=== PATIENT | female | born 1985 | race Caucasian/White ===

== ENCOUNTER 2024-01-22 16:33 | Emergency (ER) | payer OTHER, SELFPAY ==
[2024-01-22 16:35] VITALS: BP 128/84; PULSE 89; TEMP 36.7; O2SAT 99
--- NOTE | 2024-01-22 16:40 | XR_ITS ---
The [address] [address] Patient Name: AMINA BA MRN: [id number] date: 1985 Sex: F Assigned Patient Location: ER Current Patient Location: ER Accession/Order Number: [id number] Exam Date: 01/22/2024 17:03 Report Date: 01/22/2024 17:26 At the request of: OSIEL CAMERON Procedure: XR knee LT 4V IMAGES REVIEWED: XR knee LT 4V COMPARISON: None available. CLINICAL INDICATION: left knee pain FINDINGS/IMPRESSION: 1. No evidence of acute osseous abnormality of the left knee. 2. No effusion. Electronically authenticated by: OLEGARIO ARIAS Date: 01/22/2024 17:26
--- NOTE | 2024-01-22 16:45 | PC.NURSE ---
slight left knee swelling, pt able to ambulate but with a limp, ice pack to site
--- NOTE | 2024-01-22 16:46 | ED.LOWEXI1 ---
HPI HPI - Extremity Injury (Lower) General Chief Complaint: Extremity Injury, Lower Stated Complaint: Lower INJURY Time Seen by Provider: 01/22/24 16:40 Source: patient Mode of arrival: walk-in History of Present Illness HPI Narrative: Patient is a 38-year-old female who presents to the emergency department for the evaluation of left knee pain. She states she twisted her left knee 2 days ago helping her mother, she states later that evening she twisted the knee again after a gave out. She had no fall or direct injury to the left knee. She complains of pain over the anterior/inferior patella. She is not concerned for . She is able to ambulate. No medications taken prior to arrival. Related Data Previous Rx's ?Medication ?Instructions ?Recorded ketorolac 10 mg tablet 10 mg PO TID PRN pain #10 tabs 01/22/24 prednisone 20 mg tablet See Rx Instructions .Route 01/22/24 .COMPLEX #12 tabs Allergies Allergy/AdvReac Type Severity Reaction Status Date / Time No Known Drug Allergies Allergy Verified 01/22/24 16:40 Opioid HPI Opioid Management Most Recent Pain and Opioid Data: Last JUL Pain Assessment 01/22/24 16:57 Review of Systems ROS Constitutional Denies: fever or chills Ears, nose, mouth, and throat Denies: throat pain or nasal congestion Respiratory Denies: shortness of breath Gastrointestinal Denies: nausea or vomiting Musculoskeletal Reports: extremity pain, joint pain and limited range of motion; Denies: back pain or neck pain Hematologic/Lymphatic Denies: easy bruising or easy bleeding Exam Narrative Exam Narrative: Gen.: Awake, alert, in no distress Head: Normocephalic, atraumatic ENT: Moist mucous membranes Respiratory: No respiratory distress Extremities: Moves extremities equally, no appreciable joint effusion. Patella is stable. No laxity of the patella with mild tenderness over the patellar tendon of the left knee. No obvious deformity or bruising. Psych: Normal mood and affect Neuro: No focal neuro deficit Skin: Warm, dry, intact Constitutional Vital Signs, click to edit/add: Last Vital Signs Temp 98.0 F 01/22/24 16:35 Pulse 89 01/22/24 16:35 Resp 20 01/22/24 16:35 BP 128/84 01/22/24 16:35 Pulse Ox 99 01/22/24 16:35 O2 Del Method Room Air 01/22/24 16:35 Course Vital Signs Vital signs: Vital Signs Temperature 98.0 F 01/22/24 16:35 Pulse Rate 89 01/22/24 16:35 Respiratory Rate 20 01/22/24 16:35 Blood Pressure 128/84 01/22/24 16:35 Pulse Oximetry 99 01/22/24 16:35 Oxygen Delivery Method Room Air 01/22/24 16:35 Temperature 98.0 F 01/22/24 16:35 Pulse Rate 89 01/22/24 16:35 Respiratory Rate 20 01/22/24 16:35 Blood Pressure 128/84 01/22/24 16:35 Pulse Oximetry 99 01/22/24 16:35 Oxygen Delivery Method Room Air 01/22/24 16:35 MDM - Extremity Injury (Lower) MDM Narrative Medical decision making narrative: Patient medicated for pain in the ER, x-rays show no evidence of acute abnormality. History and physical are consistent with left knee sprain and the patient was placed in Ortega wrap and knee immobilizer. She remains neurovascularly intact pre and post hardware application. Rest, ice, elevate. She was given an appointment time for Dr. Lynn for orthopedics next week on Tuesday. Return to the emergency department if symptoms change or worsen. NSAIDs and steroids given for home. SUPERVISED APC VISIT, PHYSICIAN ATTESTATION: Based on the medical record the care appears appropriate. ? Medical Records Attestation: I reviewed the patient's medical records. Imaging Data XR knee: Attestation: I have reviewed the pertinent imaging results. Discharge Plan Discharge Chief Complaint: Extremity Injury, Lower Clinical Impression: Left knee sprain Patient Disposition: Home, Self-Care Time of Disposition Decision: 17:30 Condition: Good Prescriptions / Home Meds: New prednisone 20 mg tablet See Rx Instructions .ROUTE .COMPLEX Qty: 12 0RF Rx Instructions: 3 tabs daily for 2 days, then 2 tabs daily for 2 days, then 1 tab daily for 2 days ketorolac 10 mg tablet 10 mg PO TID PRN (Reason: pain) Qty: 10 0RF Print Language: Malawian Instructions: Knee Sprain (ED) Additional Instructions: Dr. Lynn's office will see you on Tuesday01/30/24 at 11 am, please call the office to cancel or reschedule if needed Referrals: Edwin Schultz MD [Primary Care Provider] - 1 week Rogers Lynn MD [Physician] - 01/30/24 11:00 am
[2024-01-22] MEDS: KETOROLAC TROMETHAMINE 10 MG TABLET PO (16:57)
[2024-01-22] MEDS: HYDROCODONE/ACET 5-325 MG TABLET 1 TAB PO (16:57)
== END 2024-01-22 17:49 | disposition home or self-care (01) ==
PROVIDERS: Emergency Provider Emergency Medicine Emergency Medical Services; PCP Family Medicine
DX: S83.92XA Sprain of unspecified site of left knee, initial encounter (principal); X50.1XXA Overexertion from prolonged static or awkward postures, initial encounter
CPT/HCPCS: 73564; 99284

== ENCOUNTER 2024-02-08 07:34 | Outpatient (OUT) | payer OTHER, SELFPAY ==
--- NOTE | 2024-02-08 07:37 | MR_ITS ---
The [address] [address] Patient Name: AMINA BA MRN: [facility]:[id number] date: 1985 Sex: F Assigned Patient Location: MRI Current Patient Location: MRI Accession/Order Number: [id number] Exam Date: 02/08/2024 07:50 Report Date: 02/08/2024 15:05 At the request of: AUTUMN BECKWITH Procedure: MR knee LT wo con EXAM: MR knee LT wo con HISTORY: Internal Derangement Of Knee COMPARISON: None. TECHNIQUE: MRI images obtained with multiple sequences. MRI of the left knee without contrast. Sequences obtained by standard department protocol. FINDINGS: Anterior cruciate and posterior cruciate ligaments are intact. Medial collateral ligament and lateral supporting structures are intact. Medial meniscus is intact. Medial compartment articular cartilage is preserved. Lateral meniscus is intact. Lateral compartment articular cartilage is preserved. Subchondral nondisplaced fracture of the lateral tibial plateau with adjacent reactive bone marrow edema (sagittal T2, coronal PD fat-sat). Near full-thickness chondral fissure at the medial patellar facet. Trochlear articular cartilage is preserved. Small quantity of knee joint fluid. Extensor mechanism is intact. Miniscule popliteal cyst. MR/MR knee LT wo con IMPRESSION: 1. Subchondral nondisplaced fracture of the lateral tibial plateau with adjacent reactive bone marrow edema (sagittal T2, coronal PD fat-sat). 2. Anterior cruciate and posterior cruciate ligaments are intact. 3. Medial and lateral menisci are intact. 4. Other findings as described. Electronically authenticated by: DERECK NICHOLSON Date: 02/08/2024 15:05
== END 2024-02-08 07:35 | disposition home or self-care (01) ==
LOC: MRI 07:34
PROVIDERS: PCP Family Medicine; Visit Provider Family Medicine
DX: M23.92 Unspecified internal derangement of left knee (principal); S82.142A Displaced bicondylar fracture of left tibia, initial encounter for closed fracture
CPT/HCPCS: 73721

== ENCOUNTER 2024-09-30 15:31 | Emergency (ER) | payer OTHER, SELFPAY ==
--- OUTSIDE RECORDS SUMMARY | 2024-03-19 04:30 | XMS_ITS ---
Author Organization [facility] Address [address] [place] [address] Care Team Providers Care Schedule Checker Name Role Phone Edwin Schultz Primary Care Provider [facility] [phone] Results Component Value Reference Range Notes SCC- KNEE 2 VIEW LEFT - 7356 0 Reviewed date:05/15/2024 10:35:52 AM Interpretation: Performing Lab: Notes/Report: REASON FOR VISIT left knee lateral tibia plateau fracture Encounters Encounter Location Date Provider Diagnosis [facility] [address] [place] [address] 03/19/2024 Rogers Lynn Closed fracture of lateral portion of left tibial plateau with routine healing, subsequent encounter S82.122D Assessments Encounter Date Diagnosis (ICD Code) Assessment Notes Treatment Notes Treatment Clinical Notes Section Notes 03/19/2024 Closed fracture of lateral portion of left tibial plateau with routine healing, subsequent encounter (ICD-10 - S82.122D) Plan Of Treatment No Information Progress Notes * AMINA BA LDOB:[birth year] (39 yo F)Acc No.[id number]:03/19/2024 Patient: AMINA NGUYEN Kirt Provider: Molly Lynn MD :1985 A ge:38 Y S ex:Female Date:03/19/2024 Address:[address] [facility] Pcp:Edwin Schultz Subjective: * Chief Complaints: * 1 . Left knee lateral tibia plateau fracture. * Medical History: Objective: * Vitals: Assessment: * Assessment: 1. C losed fracture of lateral portion of left tibial plateau with routine healing, subsequent encounter - S82.122D Plan: * Treatment: Forms: * Images: * Electronic signature of Edison Lynn MD on 09/30/2024 at 03:39 PM EDT Sign off status: Pending * Provider: Molly Lynn MD Date: 1 05/19/2023 Generated for Jairo corona/[place]/Simranitting on: 0 09/30/2024 03:39 PM EDT
--- OUTSIDE RECORDS SUMMARY | 2024-08-03 11:30 | XMS_ITS ---
Author Organization The [facility] [place] Address [address] [place] [address] Care Team Providers Care Channel Business Manager Name Role Phone Anthony Schultz Primary Care Provider Allergies No Known Allergies Results Component Value Reference Range Notes UA (Urinalysis, Dipstix only - w/o micro) (Not yet reviewed by provider) Interpretation: Performing Lab: Notes/Report: GLUCOSE - 0 - 133 MG/DL ALBUMIN - NEG - NEG MG/DL BILIRUBIN - NEG - NEG MG/DL SPECIFIC GRAVITY 5 1.001 - 1.035 KETONES - NEG - NEG MG/DL BLOOD, UR + PH, UR 5 5 - 9 UROBILNOGEN - 0.2 - 1 MG/DL NITRITE + NEG - NEG ESTERASE (ASHLEY) + NEG - NEG MG/DL REASON FOR VISIT 2 month adipex follow up, patient also feels she might have a uti, symptoms are burning and frequency Medications Medication SIG (Take, Route, Fr equency, Duration) Notes Start Date End Date Status Pyridium 200 MG 1 tablet after meals Orally Three times a day for 2 days 08/03/2024 Act luis e Adipex-P 37.5 MG 1 tablet before leonardo kfast Orally Once a day for 30 days 08/03/2024 Active Cefdinir 300 MG 2 capsule Orally onc e a day for 10 days 08/03/2024 Active valACYclovir HCl 500 MG 1 tablet Orally tid for 10 days 07/06/2024 Active Zovirax 5 % 1 application Medical Education Manager ally Five times a day for 4 days 07/06/2024 Acti ve Social History Tobacco Use: Social History Observation Description Date Details (start date - stop date) Former Smoker NA - NA Tobacco Control (Standard) Question Answer Notes Tobacco use: Former smoker AUDIT-C (Standard) Question Answer Notes Did you have a drink contain ing alcohol in the past year? Yes How often did you have six o r more drinks on one occasion in the past year? Never (0 point) How many drinks did you have on a typical day when you were drinking in the past year? 1 or 2 drinks (0 point) How often did you have a dri nk containing alcohol in the past year? Monthly or less (1 point) Points 1 Interpretation Negative Vital Signs Blood pressure systolic 112 mm Hg 08/04/19 25 Blood pressure diastolic 70 mm Hg 025 Height 64 in 08/03/2024 Weight 184 lbs 08/03/2024 BMI 31.58 kg/m2 08/03/2024 Encounters Encounter Location Date Provider Diagnosis [facility] [address] [place] [address] 08/03/2024 Anthony Schultz UTI (urinary tract infection) N39.0 Assessments Encounter Date Diagnosis (ICD Code) Assessment Notes Treatment Notes Treatment Clinical Notes Section Notes 08/03/2024 UTI (urinary tract infection) (ICD-10 - N39.0) Plan Of Treatment Medication Medication Name Sig Start Date Stop Date Notes Pyridium 200 MG 1 tablet after meals Orally Three times a day for 2 days 08/03/2024 Adipex-P 37.5 MG 1 tablet before leonardo kfast Orally Once a day for 30 days 08/03/2024 Cefdinir 300 MG 2 capsule Orally once a day for 10 days Pending Test Test Name Order Date UA (Urinalysis, Dipstix only - w/o micro ) 08/03/2024 Progress Notes * BAArianna LDOB:[birth year] (39 yo F)Acc No.[id number]:08/03/2024 Progress Note Patient: Arianna NGUYEN Provider: Radha Schultz (TTC)MD :1985 A ge:39 Y S ex:Female Date:08/03/2024 Address:[address] [place], [place] [id number] Check In:03:27 PM ESTCheck O ut:03:50 PM EST Subjective: * Chief Complaints: * 2 month adipex follow upPatient also feels she might have a uti, symptoms are burning and frequency * ROS: E ENT: hearing changes d enies. v isual changes d enies.?non-healing mouth sores d enies. s wollen glands or neck lumps d enies. h oarseness d enies. s ore throat d enies. d ifficulty swallowing d enies. n ose bleeds d enies. n anh congestion d enies. e ar ache d enies. e ar discharge?denies. r inging in ears d enies. l ight sensitivity d enies. e ye pain d enies. b lurring d enies. e ye irritation d enies. d ouble vision d enies.?vision loss d enies. G eneral/Constitutional: Sweats: D enies. F atigue d enies. S leep problems d enies. A norexia d enies. M alaise d enies. W eight loss d enies.?Fatigue or Weakness d enies. F ever or Chills d enies. C ardiovascular: Shortness of Breath w/lying flat d enies. L ightheadedness/dizziness d enies. C hest tightness/ heavy pressure d enies. S welling of legs, ankles, or feet d enies. W aking up with shortness of breath d enies. C hest pain denies. P alpitations d enies. W eight gain d enies. R espiratory: Chronic or frequent cough d enies. C oughing up blood?denies. D ifficulty breathing d enies. P roductive cough d enies. S noring?denies. S hortness of breath that awakens from sleep (PND) d enies. C hest pain d enies. S putum production d enies. W heezing d enies. M usculoskeletal: Joint pain d enies. J oint Fluid d enies. B ack pain d enies. K nee pain d enies. N malachi pain d enies. J oint Stiffness d enies. M uscle cramps d enies. W eakness of muscles d enies. A rthritis d enies. M uscle aches d enies. P ain in shoulder(s) d enies. S wollen joints d enies. * Active Problem List M23.90 Internal derangement of knee Modified On:01/24/2024W/U Status:confirmed B00.1 Cold sore Modified On:07/06/2024W/U Status:confirmed * Medical History: * Surgical History: N o Surgical History documented. * Hospitalization/Major Diagno stic Procedure: N o Hospitalization History. * Family History: F ather: alive, diagnosed with Unspecified heart disease. M other: alive, diagnosed with Unspecified essential hypertension. B rother(s): alive. S ister(s): alive. S on(s): alive. D aughter(s): alive. 1 brother(s) , 2 sister(s) - healthy. 2 son(s) , 1 daughter(s) - healthy. . * Social History: T obacco Use: T obacco Control (Standard) T obacco use: F ormer smoker D rug/Alcohol: A MOSHE-C (Standard) D id you have a drink containing alcohol in the past year? Y es H ow often did you have six or more drinks on one occasion in the past year? N ever (0 point) H ow many drinks did you have on a typical day when you were drinking in the past year? 1 or 2 drinks (0 point) H ow often did you have a drink containing alcohol in the past year? M onthly or less (1 point) P oints 1 I nterpretation N egative * Medications: T akingAdipex-P(Phentermine HCl) 37.5 MG Tablet 1 tablet before breakfast Orally Once a day valACYclovir HCl 500 MG Tablet 1 tablet Orally tid Zovirax(Acyclovir) 5 % Cream 1 application Externally Five times a day Medication List reviewed and reconciled with the patientTaking Adipex-P(Phentermine HCl) 37.5 MG Tablet 1 tablet before breakfast Orally Once a day Taking valACYclovir HCl 500 MG Tablet 1 tablet Orally tid Taking Zovirax(Acyclovir) 5 % Cream 1 application Externally Five times a day Medication List reviewed and reconciled with the patient * Allergies: N .K.D.A.no[Allergies Verified] Objective: * Vitals: W t:184lbs, Ht: 64 in, BP:112/70mm Hg, BMI:31.58Index, Ht-cm: 162.56 cm, Wt-k.46 kg. * Examination: P hysical Exam: GENERAL: w ell developed, well nourished, in no acute distress. HEAD: n ormocephalic/atraumatic. EYES: p upils equal, round and reactive to light, conjunctivae and sclerae normal. EARS: n o deformity or lesion of external ear, canals and TM appear normal bilaterally, TM's intact, not inflamed with normal light reflex, hearing grossly normal to conversational speech. NOSE: n o deformity, discharge, inflammation, or lesions.? MOUTH: m ucous membranes moist, normal oropharynx and posterior pharynx without lesions or exudates, tongue normal, dentition normal. NECK: n malachi supple, no masses or palpable cervical nodes, trachea midline, thyroid without nodules, masses, tenderness, or enlargement. CHEST: n o chest wall deformity, no chest wall tenderness.? LUNGS: n ormal respiratory effort and clear to auscultation, no wheezes, rales, or rhonchi, good air exchange. CARDIO: r egular rate and rhythm, normal S1 and S2, nor murmur, rub, or gallop. PULSES: n ormal capillary refill. ABDOMEN: s oft, non-distended, non-tender, no masses. MUSCULOSKELETAL: n o deformity or scoliosis noted, normal range of motion, joints normal, no erythema, edema, effusion, or ecchymosis. EXTREMITY: n o clubbing, cyanosis, edema, or deformity with normal ROM in both upper and lower bilateral extremities. NEUROLOGIC: g rossly normal. SKIN: n o rashes, ulcerations, or suspicious lesions. LYMPH NODES: n o cervical adenopathy, nodes normal. MENTAL STATUS: a lert and oriented x3, normal mood and affect. Assessment: * Assessment: 1. U TI (urinary tract infection) - N39.0 (Primary) Plan: * Treatment: * Labs: * L ab: UA (Urinalysis, Dipstix only - w/o micro) (Collection Date & Time - 08/03/2024) Value Reference Range G LUCOSE - 0 - 133 MG/DL * A LBUMIN - NEG - NEG MG/DL * B ILIRUBIN - NEG - NEG MG/DL * S PECIFIC GRAVITY 5 1.001 - 1.035 * K ETONES - NEG - NEG MG/DL * B LOOD, UR + * P H, UR 5 5 - 9 * U ROBILNOGEN - 0.2 - 1 MG/DL * N ITRITE + NEG - NEG * E STERASE (ASHLEY) + NEG - NEG MG/DL * Procedure Codes: 8 1002 URINALYSIS WO MICRO * * Sign off status: Completed Visit Status: C HK (Check Out) true * Provider: Radha Schultz ([facility])MD Date: 0 08/03/2024 Generated for Printi ng/Faxing/eTransmitting on: 0 09/30/2024 03:39 PM EDT History and Physical Notes * Examination Category Sub-Category Detail Notes Category Not es Physical Exam GENERAL: well developed, well nourished, in no acute distress HEAD: normocephalic/atraum atic EYES: pupils equal, round and reactive to light, conjunctivae and sclerae normal EARS: no deformity or lesi on of external ear, canals and TM appear normal bilaterally, TM's intact, not inflamed with normal light reflex, hearing grossly normal to conversational speech NOSE: no deformity, discha rge, inflammation, or lesions MOUTH: mucous membranes leonel st, normal oropharynx and posterior pharynx without lesions or exudates, tongue normal, dentition normal NECK: neck supple, no mass es or palpable cervical nodes, trachea midline, thyroid without nodules, masses, tenderness, or enlargement CHEST: no chest wall deform ity, no chest wall tenderness LUNGS: normal respiratory e ffort and clear to auscultation, no wheezes, rales, or rhonchi, good air exchange CARDIO: regular rate and rhy thm, normal S1 and S2, nor murmur, rub, or gallop PULSES: normal capillary ref ill ABDOMEN: soft, non-distended, non-tender, no masses RECTAL: MUSCULOSKELETAL: no deformity or scol iosis noted, normal range of motion, joints normal, no erythema, edema, effusion, or ecchymosis EXTREMITY: no clubbing, cyanosi s, edema, or deformity with normal ROM in both upper and lower bilateral extremities NEUROLOGIC: grossly normal SKIN: no rashes, ulceratio ns, or suspicious lesions LYMPH NODES: no cervical adenopat hy, nodes normal MENTAL STATUS: alert and oriented x 3, normal mood and affect
--- OUTSIDE RECORDS SUMMARY | 2024-08-31 11:15 | XMS_ITS ---
Author Organization The [facility] [place] Address [address] [place] [address] Care Team Providers Care Handle Lathe Operator Name Role Phone Anthony Schultz Primary Care Provider [phone] REASON FOR VISIT diet Encounters Encounter Location Date Provider Diagnosis [facility] [address] [place] [address] 08/31/2024 Anthony Schultz Plan Of Treatment No Information Progress Notes * Arianna BA LDOB:[birth year] (39 yo F)Acc No.[id number]:08/31/2024 UNLOCKED PROGRESS NOTE Progress Note Patient: Arianna NGUYEN Provider: Radha Schultz MD (TTC) :1985 A ge:39 Y S ex:Female Date:08/31/2024 Address:[address] [facility] Subjective: * Chief Complaints: * 1 . Diet. * Medical History: Objective: * Vitals: Assessment: Plan: * Treatment: * * Electronic signature of Anthony Schultz MD, [id number] on 09/30/2024 at 03:38 PM EDT Sign off status: Pending Visit Status: C ANC (Cancelled) * Provider: Radha Schultz MD (TTC) Date: 0 08/31/2024 Generated for Printi ng/Fakristyg/eTransmitting on: 0 09/30/2024 03:38 PM EDT
--- OUTSIDE RECORDS SUMMARY | 2024-09-07 11:30 | XMS_ITS ---
Author Organization [facility] in [place] Address [address] [place] [address] Care Team Providers Care Ctrs Name Role Phone Anthony Schultz Primary Care Provider [phone] Allergies No Known Allergies REASON FOR VISIT diet Medications Medication SIG (Take, Route, Fr equency, Duration) Notes Start Date End Date Status Zovirax 5 % 1 application Staffing Associate ally Five times a day for 4 days 07/06/2024 Active Adipex-P 37.5 MG 1 tablet before leonardo kfast Orally Once a day for 30 days 09/07/2024 Active Social History Tobacco Use: Social History Observation Description Date Details (start date - stop date) Former Smoker NA - NA Tobacco Control (Standard) Question Answer Notes Tobacco use: Former smoker Vital Signs Blood pressure systolic 126 mm Hg 09/08/19 25 Blood pressure diastolic 82 mm Hg 025 Height 64 in 09/07/2024 Weight 174.0 lbs 09/07/2024 BMI 29.86 kg/m2 09/07/2024 Encounters Encounter Location Date Provider Diagnosis [facility] [address] [place] [address] 09/07/2024 Anthony Schultz Internal derangement of knee M23.90 Assessments Encounter Date Diagnosis (ICD Code) Assessment Notes Treatment Notes Treatment Clinical Notes Section Notes 09/07/2024 Internal derangement of knee (ICD-10 - M23.90) Plan Of Treatment Medication Medication Name Sig Start Date Stop Date Notes Pyridium 200 MG 1 tablet after meals Orally Three times a day 08/03/2024 Adipex-P 37.5 MG 1 tablet before leonardo kfast Orally Once a day for 30 days 09/07/2024 Progress Notes * Arianna BA LDOB:[birth year] (39 yo F)Acc No.[id number]:09/07/2024 Progress Note Patient: Arianna NGUYEN Provider: Radha Schultz ([facility])MD :1985 A ge:39 Y S ex:Female Date:09/07/2024 Address:[address] [place] [address], [id number] Check In:03:27 PM ESTCheck O ut:03:47 PM EST Subjective: * Chief Complaints: * D iet * ROS: E ENT: hearing changes d [...] Status:confirmed * Medical History: * Surgical History: D enies Past Surgical History * Hospitalization/Major Diagno stic Procedure: D enies Past Hospitalization * Family History: F ather: alive, diagnosed with Unspecified heart disease. M other: alive, diagnosed with Unspecified essential hypertension. B rother(s): alive. S ister(s): alive. S on(s): alive. D dechter(s): alive. 1 brother(s) , 2 sister(s) - healthy. 2 son(s) , 1 daughter(s) - healthy. . * Social History: T obacco Use: T obacco Control (Standard) T obacco use: F ormer smoker * Medications: T akingAdipex-P(Phentermine HCl) 37.5 MG Tablet 1 tablet before breakfast Orally Once a day Pyridium(Phenazopyridine HCl) 200 MG Tablet 1 tablet after meals Orally Three times a day Zovirax(Acyclovir) 5 % Cream 1 application Externally Five times a day Taking Adipex-P(Phentermine HCl) 37.5 MG Tablet 1 tablet before breakfast Orally Once a day Taking Pyridium(Phenazopyridine HCl) 200 MG Tablet 1 tablet after meals Orally Three times a day Taking Zovirax(Acyclovir) 5 % Cream 1 application Externally Five times a day DiscontinuedCefdinir 300 MG Capsule 2 capsule Orally once a day valACYclovir HCl 500 MG Tablet 1 tablet Orally tid Medication List reviewed and reconciled with the patientDiscontinued Cefdinir 300 MG Capsule 2 capsule Orally once a day Discontinued valACYclovir HCl 500 MG Tablet 1 tablet Orally tid Medication List reviewed and reconciled with the patient * Allergies: N .K.D.A.no[Allergies Verified] Objective: * Vitals: W t:174.0lbs, Ht: 64 in, BP:126/82mm Hg, BMI:29.86Index, Ht-cm: 162.56 cm, Wt-k.93 kg. * Examination: P hysical Exam: GENERAL: [...] mood and affect. Assessment: * Assessment: 1. I nternal derangement of knee - M23.90 (Primary) Plan: * Treatment: * Procedure Codes: * Preventive Medicine: Screenings/Counseling: B [facility] [employer] Above Normal BMI Follow-up D ietary management education, guidance, and counseling * * Sign off status: Completed Visit Status: C HK (Check Out) true * Provider: Radha Schultz ([facility])MD Date: 09/07/2024 Generated for Printi ng/Faxing/eTransmitting on: 09/30/2024 03:38 PM EDT History and Physical Notes * [...]
[2024-09-30 15:39] VITALS: BP 137/90; PULSE 81; TEMP 36.8; O2SAT 99; BMI 28.3
--- OUTSIDE RECORDS SUMMARY | 2024-09-30 15:39 | XMS_ITS | Patient Health Record ---
Author Organization [facility] Address [address] [place] [address] Care Team Providers Care Chargemaster Analyst Name Role Phone Edwin Schultz Primary Care Provider Eskari weems Rogers Lynn Unavailable [phone] Allergies No Known Allergies Results Component Value Reference Range Notes MRI : Knee W/O Contrast Left - [id number] Reviewed date:03/01/2024 09:14:11 AM Interpretation: Performing Lab: Notes/Report: Reason For Referral Reason N/S........NEED DICT .....PLEASE OBTAIN AUTHORIZATION FOR MRI LEFT KNEE Diagnosis 1 Acute pain of left k nee (M25.562) Referral Organization [facility] Referring Provider First Name Rogers Referring Provider Last Name Leah Referring Provider Speciality Orthopedic Surgery [facility] Organization [facility] Referred Address [place], [place], Procedure 1 MRI Joint Lower Ext w/o Dye ([id number]) General Notes Annie Landon 024 12:15:28 PM >NO DICTATIONSavage Kimberly 01/30/2024 01:39:21 PM >Patient called because she remembered that her PCP has also ordered an MRI of her left knee. She is going to see if the authorization process has started. If it has not, she will cancel with him and will proceed with ours. If it has, she will get the MRI and then schedule a follow up with [facility].Savage Kimberly 02/02/2024 09:32:41 AM > Spoke with patient. She is still trying to figure out if her PCP has started the process., Elvia Wan 02/02/2024 02:51:18 PM >Patient left a voicemail that her MRI has been scheduled through her PCP Referral Priority Urgent Social History Tobacco Use: Social History Observation Description Date Details (start date - stop date) Never Smoker NA - NA AUDIT-C (Standard) Question Answer Notes Did you [...] less (1 point) Points 1 Interpretation Negative Tobacco Control (Standard) Question Answer Notes Tobacco use: Nonsmoker Problems Problem Type SNOMED Code ICD Code Onset Dates Problem Status W/U Status Risk Notes Problem [id number] Closed fracture of lateral portion of left tibial plateau with routine healing, subsequent encounter (S82.122D) Active confirmed Vital Signs Height 5'4 in 02/20/2024 Weight 170 lbs 02/20/2024 BMI 29.18 02/20/2024 Encounters Encounter Location Date Provider Diagnosis [facility] [address] [place] [phone] 01/30/2024 Rogers Lynn Acute pain of left knee M25.562 [facility] [address] [place] [phone] 02/20/2024 Rogers Lynn Closed fracture of lateral portion of left tibial plateau with routine healing, subsequent encounter S82.122D Assessments Encounter Date Diagnosis (ICD Code) Assessment Notes Treatment Notes Treatment Clinical Notes Section Notes 01/30/2024 Acute pain of left knee (ICD-10 - M25.562) 02/20/2024 Closed fracture of lateral portion of left tibial plateau with routine healing, subsequent encounter (ICD-10 - S82.122D) 01/30/2024 Other Patient's left knee injury is concerning for meniscal tear versus an occult fracture. I recommended continue with crutches. I recommended an MRI scan. She will follow-up once the study is complete. Import medication 02/20/2024 Other For her lateral tibial plateau fracture I recommended she get back on the crutches for nonweightbearing and minimize activity. Work for her is at a factory to involve standing all day. I discussed she would likely be out for 2 more months. She will follow-up in 1 month to repeat x-rays and reassess her progress. Import medication Plan Of Treatment No Information Insurance Providers Payer Name Payer Address Payer Phone Subscriber Number Group Number Insured Name Patient Relationship to Insured Coverage Start Date Coverage End Date [facility] [address] [place] [phone] [id number] AMINA BA Self - patient is the insured
[2024-09-30] MEDS: FLUORESCEIN SODIUM 1 MG STRIP OP (15:54)
[2024-09-30] MEDS: TETRACAINE HCL 0.5% OP SOL 80 DROP/4 ML BOTTLE OP (15:55)
--- NOTE | 2024-09-30 16:00 | ED.EYEPROB1 ---
HPI - Eye Problem General Chief complaint: Eye Problems Stated complaint: EYE ISSUE Time Seen by Provider: 09/30/24 15:48 Source: patient Mode of arrival: walk-in History of Present Illness HPI Narrative: 39 year old female presents to the ED for left eye irritation, crusting, drainage. Reports mild itching. Onset was a few days ago. 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 The sensation has improved. Denies fever, vision changes. Related Data Previous Rx's ?Medication ?Instructions ?Recorded ofloxacin 0.3 % eye drops (Ocuflox) 2 drp ophthalmic (eye) Q6H 7 days 09/30/24 #5 mL Allergies Allergy/AdvReac Type Severity Reaction Status Date / Time No Known Drug Allergies Allergy Verified 01/22/24 16:40 Review of Systems ROS Constitutional Denies: fever or chills Eyes Reports: eye discomfort and eye discharge; Denies: change in vision, blurry vision, blind spots, light sensitivity or floaters Cardiovascular Denies: chest pain Respiratory Denies: shortness of breath Neurological Denies: headache PFSH PFSH Social History Little interest or pleasure in doing things: not at all Feeling down, depressed, or hopeless: not at all Exam Constitutional Vital Signs, click to edit/add: Last Vital Signs Temp 98.2 F 09/30/24 15:39 Pulse 81 09/30/24 15:39 Resp 18 09/30/24 15:39 BP 137/90 09/30/24 15:39 Pulse Ox 99 09/30/24 15:39 O2 Del Method Room Air 09/30/24 15:39 Common normals: no apparent distress and oriented x3 General appearance: cooperative Eye Common normals: PERRL, EOMs intact bilaterally and no scleral icterus Eyelid: eyelids normal Conjunctiva: conjunctiva abnormal left conjunctival injection and discharge; without subconjunctival hemmorhages Other: Left eye was anesthetized with tetracaine, stained with a fluorescein strip, and examined with the wood's lamp. No corneal abrasion was noted. No FB noted. Neck & C-Spine Common normals: supple Respiratory Common normals: normal respiratory effort Effort & inspection: able to speak in complete sentences and symmetric chest movement Cardio Common normals: regular rate Neuro Common normals: oriented x3 and moves all extremities Sensorium/orientation: awake and alert Speech: speech normal Course Vital Signs Vital signs: Vital Signs Temperature 98.2 F 09/30/24 15:39 Pulse Rate 81 09/30/24 15:39 Respiratory Rate 18 09/30/24 15:39 Blood Pressure 137/90 09/30/24 15:39 Pulse Oximetry 99 09/30/24 15:39 Oxygen Delivery Method Room Air 09/30/24 15:39 Temperature 98.2 F 09/30/24 15:39 Pulse Rate 81 09/30/24 15:39 Respiratory Rate 18 09/30/24 15:39 Blood Pressure 137/90 09/30/24 15:39 Pulse Oximetry 99 09/30/24 15:39 Oxygen Delivery Method Room Air 09/30/24 15:39 MDM - Eye Problem MDM Narrative Medical decision making narrative: No corneal abrasion or FB were noted. A prescription was provided for Ocuflox. Follow up with an leadership program internship for a recheck, further evaluation and treatment. Differential Diagnosis Differential diagnosis: Likely corneal abrasion, conjunctivitis and corneal ulcer Discharge Plan Discharge Chief Complaint: Eye Problems Clinical Impression: Conjunctivitis, Eye irritation Patient Disposition: Home, Self-Care Time of Disposition Decision: 15:59 Condition: Good Mode of Transportation: Private Vehicle Prescriptions / Home Meds: New ofloxacin [Ocuflox] 0.3 % drops 2 drp ophthalmic (eye) Q6H 7 Days Qty: 5 0RF Print Language: Rwandan Instructions: Conjunctivitis (ED) Additional Instructions: Follow up with an leadership program internship for a recheck. Referrals: Edwin Schultz MD [Primary Care Provider, Family Practice] - 1 week Discharge Date/Time: 09/30/24 16:09
== END 2024-09-30 16:09 | disposition home or self-care (01) ==
PROVIDERS: Emergency Provider Emergency Medicine; PCP Family Medicine
DX: H10.9 Unspecified conjunctivitis (principal); H57.9 Unspecified disorder of eye and adnexa
CPT/HCPCS: 99284

== ENCOUNTER 2024-11-18 21:21 | Emergency (ER) | payer OTHER, SELFPAY ==
--- OUTSIDE RECORDS SUMMARY | 2024-11-18 21:33 | XMS_ITS | CCD ---
Author Organization [facility] Care Team Providers Care Insole Tacker Name Role Phone DR AUTUMN BECKWITH Primary Care Unavailable HOLLY, JESSICA Admitting Unavailable HOLLY, JESSICA Attending Unavailable Domenico Alejo Consulting Unavailable HOLLY, JESSICA Consulting Unavailable TANG, DR LEYVA Admitting Unavailable TANG, DR LEYVA Attending Unavailable TANG, DR LEYVA Consulting Unavailable TANG, DR LEYVA Primary Care Unavailable SAM, DR LOREN Goncalves Admitting Unavailabl e REINECK, DR LOREN Goncalves Attending Unavailabl e REINECK, DR LOREN Goncalves Consulting Unavailabl e HOY, DR LEYVA Primary Care Unavailable HOLLY, JESSICA Admitting Unavailable HOLLY, JESSICA Attending Unavailable JEAN ALVARES Consulting Unavailable HOLLY, JESSICA Consulting Unavailable Momo Pak Consulting Unavailable Avelina Alvarez Consulting Unavailable Problems Active Problems Problem Classification Problem Date Documented Date Episodic/Chronic Abdominal pain (4 sources) Unspecified abdominal pain; Translations: [UNSPECIFIED ABDOMINAL PAIN] Onset: 08-02-2021 Episodic E Codes: Fall (1 source) Fall on same level from slipping, tripping and stumbling without subsequent striking against object, initial encounter; Translations: [FALL SAME LVL SLIP NO STRK OBJ INIT] Onset: 08-17-2021 Episodic Noninfectious gastroenteritis (1 source) Noninfective gastroenteritis and colitis, unspecified; Translations: [NONINFECTIVE GE AND COLITIS UNS] Onset: 08-04-2021 Episodic Other ear and sense organ disorders (1 source) Unspecified otitis externa, left ear; Translations: [UNS OTITIS EXTERNA LEFT EAR] Onset: 02-18-2021 Chronic Other injuries and conditions due to external causes (3 sources) Unspecified injury of head, initial encounter; Translations: [UNSPECIFIED INJURY HEAD INITIAL ENC] Onset: 08-08-2021 Episodic Other injuries and conditions due to external causes (1 source) Other specified injuries of head, initial encounter; Translations: [OTH SPEC INJURIES HEAD INITIAL ENC] Onset: 08-17-2021 Episodic Ovarian cyst (1 source) Unspecified ovarian cyst, right side; Translations: [UNSPECIFIED OVARIAN CYST RIGHT SIDE] Onset: 08-04-2021 Episodic Substance-related disorders (1 source) Nicotine dependence, cigarettes, uncomplicated; Translations: [NICOTINE DEPEND CIGARETTES UNCOMP] Onset: 08-17-2021 Chronic Superficial injury; contusion (1 source) Contusion of unspecified part of head, initial encounter; Translations: [CONTUS UNS PRT HEAD INITIAL ENCNTR] Onset: 08-17-2021 Episodic Unclassified (3 sources) CONTACT W/AND (SUSP) EXPOS COVID-19; Translations: [CONTACT W/AND (SUSP) EXPOS COVID-19] Onset: 12-17-2020 Past or Other Problems Problem Classification Problem Date Documented Da te Episodic/Chronic Other ear and sense organ disorders (3 sources) Otalgia, left ear; Translations: [OTALGIA LEFT EAR] Onset: 02-16-2021 Episodic Unclassified (1 source) CONTACT W/AND (SUSP) EXPOS COVID-19; Translations: [CONTACT W/AND (SUSP) EXPOS COVID-19] Onset: 12-12-2020 Results Test Name Value Interpretation Reference Range Facil ity CT HEAD WO CONon 08-08-2021 CT HEAD WO CON EXAM: CT HEAD WO CON REASON FOR EXAM: Female, 36 years, HEADACHE. TECHNIQUE: Computed tomography of the head is performed in the axial projection from the base of the skull to the vertex. Sagittal and coronal reconstructed images are performed. Dose reduction techniques were achieved by using automated exposure control and/or adjustment of mA and/or KVP according to patient size and/or use of iterative reconstruction technique. COMPARISON: None. FINDINGS: Normal soft tissues. Normal calvarium. The ventricles have normal size and configuration for patient's age. Normal brain parenchyma. Normal basal ganglia. Normal brainstem. The cerebellum is normal. There is no evidence for acute ischemia. There is no evidence for acute hemorrhage. The visualized paranasal sinuses are clear. IMPRESSION: Normal CT of the brain. Electronically authenticated by: DOMENICO ALEJO Date: 2021-08-08 17:55 Normal [facility] AMYLASEon 08-02-2021 Amylase [Catalytic activity/Vol] 37 U/L Normal 25-115 [facility] Comment on above: Performed By: #### A MY, LIPA, CMP #### [facility] [address] [address] [address] Tammy Byrne CBC AUTO DIFFon 08-02-2021 BASO # 0.0 103/ul Normal 0.0-0.1 [facility] Comment on above: Performed By: #### C BC #### [facility] [address] [address] [address] Tammy Byrne Basophils/100 WBC (Bld) 0.5 % Normal 0.2-2.0 [facility] Comment on above: Performed By: #### C BC #### [facility] [address] [place] [address] Dr. Tammy Byrne EO # 0.1 103/ul Normal 0.0-0.7 [facility] Comment on above: Performed By: #### C BC #### [facility] [address] [place] [address] Dr. Tammy Byrne Eosinophils/100 WBC (Bld) 0.7 % Critically low 0.9-7.0 [facility] Comment on above: Performed By: #### C BC #### [facility] [address] [place] [address] Dr. Tammy Byrne Erythrocyte distribution width (RBC) [Ratio] 12.2 % Normal 11.0-15.0 [facility] Comment on above: Performed By: #### C BC #### [facility] [address] [place] [address] Dr. Tammy Byrne Hematocrit (Bld) [Volume fraction] 37.3 % Normal 36.0-48.0 [facility] Comment on above: Performed By: #### C BC #### [facility] [address] [place] [address] Dr. Tammy Byrne Hemoglobin (Bld) [Mass/Vol] 12.5 g/dL Normal 12.0-16.0 [facility] Comment on above: Performed By: #### C BC #### [facility] [address] [place] [address] Dr. Tammy Byrne IG # 0.02 10e3/ul Normal 0.00-0.03 [facility] Comment on above: Performed By: #### C BC #### [facility] [address] [place] [address] Dr. Tammy Byrne IG % 0.2 % Normal 0.0-0.5 [facility] Comment on above: Performed By: #### C BC #### [facility] [address] [place] [address] Dr. Tammy Byrne LYMPH # 1.8 103/ul Normal 1.2-3.8 [facility] Comment on above: Performed By: #### C BC #### [facility] [address] [place] [address] Dr. Tammy Byrne Lymphocytes/100 WBC (Bld) 22.5 % Normal 20.5-60.0 [facility] Comment on above: Performed By: #### C BC #### [facility] [address] [place] [address] Dr. Tammy Byrne MANUAL DIFF REQ NO Normal [facility] Comment on above: Performed By: #### C BC #### [facility] [address] [place] [address] Dr. Tammy Byrne MCH (RBC) [Entitic mass] 32.5 pg Normal 26.7-34.0 [facility] Comment on above: Performed By: #### C BC #### [facility] [address] [place] [address] Dr. Tammy Byrne MCHC (RBC) [Mass/Vol] 33.5 g/dL Normal 29.9-35.2 [facility] Comment on above: Performed By: #### C BC #### [facility] [address] [place] [address] Dr. Tammy Byrne MCV (RBC) [Entitic vol] 96.9 fL Normal 81.0-99.0 [facility] Comment on above: Performed By: #### C BC #### [facility] [address] [place] [address] Dr. Tammy Byrne MONO # 1.1 103/ul Critically high 0.3-0.8 [facility] Comment on above: Performed By: #### C BC #### [facility] [address] [address] [address] Tammy Byrne Monocytes/100 WBC (Bld) 13.1 % Critically high 1.7-12.0 [facility] Comment on above: Performed By: #### C BC #### [facility] [address] [address] [address] Tammy Byrne NEUT # 5.1 103/ul Normal 1.4-6.5 [facility] Comment on above: Performed By: #### C BC #### [facility] [address] [address] [address] Tammy Byrne Neutrophils/100 WBC (Bld) 63.0 % Normal 43.0-75.0 [facility] Comment on above: Performed By: #### C BC #### [facility] [address] [place] [address] Dr. Tammy Byrne Platelet mean volume (Bld) [Entitic vol] 10.7 fL Normal 9.5-13.5 [facility] Comment on above: Performed By: #### C BC #### [facility] [address] [address] [address] Tammy Byrne PLT 156 103/ul Normal 150-450 [facility] Comment on above: Performed By: #### C BC #### [facility] [address] [place] [address] Dr. Tammy Byrne RBC 3.85 106/ul Critically low 4.20-5.40 [facility] Comment on above: Performed By: #### C BC #### [facility] [address] [place] [address] Dr. Tammy Byrne WBC 8.1 103/ul Normal 4.0-11.0 [facility] Comment on above: Performed By: #### C BC #### [facility] [address] [place] [address] ABD/PELV W CONon 08-03-19 CT ABD/PELV W CON EXAMINATION: CT SCAN OF THE ABDOMEN AND PELVIS WITH INTRAVENOUS CONTRAST DATE OF EXAM: 08/02/2021 6:03 PM EDT HISTORY: GENERALIZED ABDOMINAL PAIN 36 year old female with RLQ pain. COMPARISON: None. TECHNIQUE: CT examination of the abdomen and pelvis was performed following the intravenous administration of IV contrast. CT dose lowering techniques were used, to include: automated exposure control, adjustment for patient size, and/or use of iterative reconstruction. Contrast: 75 mL Omnipaque 300 FINDINGS: Lines and Tubes: None Lower Chest: Normal Free Air: None. Liver: Enlarged, measuring 18.6 cm. Gallbladder: Normal Common Bile Duct: Normal Pancreas: Normal Spleen: Normal allowing for splenules. Adrenal Glands: Right: Normal Left: Normal Kidneys: Right Kidney: Normal. Right Ureter: Normal. Left Kidney: Normal. Left Ureter: Normal. GI Tract: Stomach: Normal Small Bowel: Fluid filled small bowel measures within normal. Appendix: Normal on axial image 61. Large Bowel: Normal Mesentery/Peritoneum: Normal Vasculature: Aorta: Normal. IVC: Normal. Amelie Vein: Normal. Retroperitoneum: Normal Abdominal/Pelvic Wall: Normal Bladder: Normal Reproductive: Fluid attenuating right ovarian cystic region measures 42 x 47 mm. Linear metallic densities overlie the expected location of the fallopian tubes. Musculoskeletal: Sclerotic foci in the posterior bilateral acetabuli and the left femoral neck, most likely bone islands. Free Fluid: None. IMPRESSION: 1. Hepatomegaly. 2. Right ovarian cystic lesion. US of the pelvis is recommended with spectral doppler to ensure no acute ovarian pathology such as torsion. 3. Fluid filled small bowel measures within normal. Please correlate for enteritis. 4. Normal appendix. 5. Otherwise, unremarkable CT of the abdomen and pelvis for acute pathology. CRITICAL findings: Spoke with Dr. Alvares at 7:27 pm EST Electronically authenticated by: MOMO PAK Date: 2021-08-02 19:28 Normal [facility] ER URINE PROFILEon 2 Bilirubin Ql (U) Negative Normal NEGATIVE [facility] Comment on above: Performed By: #### U MICRO, ERUR #### [facility] [address] [address] [address] Tammy Byrne Clarity (U) CLEAR Normal CLEAR [facility] Comment on above: Performed By: #### U MICRO, ERUR #### [facility] [address] [address] [address] Tammy Byrne Color (U) LT. YELLOW Normal YELLOW [facility] Comment on above: Performed By: #### U MICRO, ERUR #### [facility] [address] [address] [address] Tammy ALFARO A micrscopic examination will be performed if indicated. Normal [facility] Comment on above: Performed By: #### U MICRO, ERUR #### [facility] [address] [address] [address] Tammy Byrne Glucose Ql (U) Negative Normal NEGATIVE [facility] Comment on above: Performed By: #### U MICRO, ERUR #### [facility] [address] [address] [address] Tammy Byrne Hemoglobin Ql (U) SMALL Abnormal NEGATIVE [facility] Comment on above: Performed By: #### U MICRO, ERUR #### [facility] [address] [place] [address] Dr. Tammy Byrne Ketones Ql (U) Negative Normal NEGATIVE [facility] Comment on above: Performed By: #### U MICRO, ERUR #### [facility] [address] [place] [address] Dr. Tammy Byrne LEUKOCYTES Negative Normal NEGATIVE [facility] Comment on above: Performed By: #### U MICRO, ERUR #### [facility] [address] [place] [address] Dr. Tammy Byrne Nitrite Ql (U) Negative Normal NEGATIVE [facility] Comment on above: Performed By: #### U MICRO, ERUR #### [facility] [address] [address] [address] Tammy Byrne pH (U) 7.5 [pH] Normal 5-9 [facility] Comment on above: Performed By: #### U MICRO, ERUR #### [facility] [address] [address] [address] Tammy Byrne SPEC GRAVITY 1.020 Normal 1.005-<=1.025 [facility] Comment on above: Performed By: #### U MICRO, ERUR #### [facility] [address] [address] [address] Tammy Byrne UA PROTEIN Negative Normal NEGATIVE/ TRACE [facility] Comment on above: Performed By: #### U MICRO, ERUR #### [facility] [address] [place] [address] Dr. Tammy Byrne UR MICRO IND INDICATED Normal [facility] Comment on above: Performed By: #### U MICRO, ERUR #### [facility] [address] [place] [address] Dr. Tammy Byrne Urobilinogen Qn (U) 0.2 {Surjit'U}/dL Normal 0.2 - 1. 0 [facility] Comment on above: Performed By: #### U MICRO, ERUR #### [facility] [address] [place] [address] Dr. Tammy Byrne LIPASEon 08-02-2021 Lipase [Catalytic activity/Vol] 70.0 U/L Normal 23.0-300.0 [facility] Comment on above: Performed By: #### A MY, LIPA, CMP #### [facility] [address] [place] [address] Dr. Tammy Byrne PROF 14(COMP METB)on 022 Albumin [Mass/Vol] 3.8 g/dL Normal 3.4-5.0 [facility] Comment on above: Performed By: #### A MY, LIPA, CMP #### [facility] [address] [place] [address] Dr. Tammy Byrne Albumin/Globulin [Mass ratio] 1.0 {ratio} Normal [facility] Comment on above: Performed By: #### A MY, LIPA, CMP #### [facility] [address] [place] [address] Dr. Tammy Byrne ALP [Catalytic activity/Vol] 69 U/L Normal 46-116 [facility] Comment on above: Performed By: #### A MY, LIPA, CMP #### [facility] [address] [place] [address] Dr. Tammy Byrne ALT [Catalytic activity/Vol] 23 U/L Normal 14-59 [facility] Comment on above: Performed By: #### A MY, LIPA, CMP #### [facility] [address] [place] [address] Dr. Tammy Byrne Anion gap [Moles/Vol] 10.3 mmol/L Normal [facility] Comment on above: Performed By: #### A MY, LIPA, CMP #### [facility] [address] [place] [address] Dr. Tammy Byrne AST [Catalytic activity/Vol] 17 U/L Normal 15-37 [facility] Comment on above: Performed By: #### A MY, LIPA, CMP #### [facility] [address] [place] [address] Dr. Tammy Byrne Bilirubin [Mass/Vol] 0.3 mg/dL Normal 0.2-1.3 [facility] Comment on above: Performed By: #### A MY, LIPA, CMP #### [facility] [address] [place] [address] Dr. Tammy Byrne Calcium [Mass/Vol] 8.8 mg/dL Normal 8.5-10.1 [facility] Comment on above: Performed By: #### A MY, LIPA, CMP #### [facility] [address] [place] [address] Dr. Tammy Byrne Chloride [Moles/Vol] 103 mmol/L Normal 98-107 [facility] Comment on above: Performed By: #### A MY, LIPA, CMP #### [facility] [address] [place] [address] Dr. Tammy Byrne CO2 [Moles/Vol] 27.3 mmol/L Normal 22.0-30.0 [facility] Comment on above: Performed By: #### A MY, LIPA, CMP #### [facility] [address] [place] [address] Dr. Tammy Byrne Creatinine [Mass/Vol] 0.87 mg/dL Normal 0.52-1.04 [facility] Comment on above: Performed By: #### A MY, LIPA, CMP #### [facility] [address] [place] [address] Dr. Tammy Byrne EGFR-AF UKRAINIAN >60 Normal >=60 [facility] Comment on above: Performed By: #### A ROMULO LIPA, CMP #### [facility] [address] [place] [address] Dr. Tammy Byrne EGFR-NON AF UKRAINIAN >60 Normal >=60 [facility] Comment on above: Performed By: #### A ROMULO LIPA, CMP #### [facility] [address] [place] [address] Dr. Tammy Byrne Globulin (S) [Mass/Vol] 3.7 g/dL Normal [facility] Comment on above: Performed By: #### A ROMULO LIPA, CMP #### [facility] [address] [place] [address] Dr. Tammy Byrne Glucose [Mass/Vol] 113 mg/dL Critically high 74-106 [facility] Comment on above: Performed By: #### A ROMULO LIPA, CMP #### [facility] [address] [place] [address] Dr. Tammy Byrne Potassium [Moles/Vol] 3.8 mmol/L Normal 3.4-5.0 [facility] Comment on above: Performed By: #### A SOHAN SEBASTIANA, CMP #### [facility] [address] [place] [address] Dr. Tammy Byrne Protein [Mass/Vol] 7.5 g/dL Normal 6.1-8.2 [facility] Comment on above: Performed By: #### A ROMULO LIPA, CMP #### [facility] [address] [place] [address] Dr. Tammy Byrne Sodium [Moles/Vol] 137 mmol/L Normal 137-145 [facility] Comment on above: Performed By: #### A ROMULO LIPA, CMP #### [facility] [address] [place] [address] Dr. Tammy Byrne Urea nitrogen [Mass/Vol] 10.0 mg/dL Normal 7.0-18.0 [facility] Comment on above: Performed By: #### A ROMULO LIPA, CMP #### [facility] [address] [address] [address] Tammy Byrne Urea nitrogen/Creatinine [Mass ratio] 11.5 mg/mg Normal [facility] Comment on above: Performed By: #### A MY, LIPA, CMP #### [facility] [address] [address] [address] Tammy Byrne URINE MICROSCOPIC ONLYon BACTERIA TRACE Abnormal NONE SEEN [facility] Comment on above: Performed By: #### U MICRO, ERUR #### [facility] [address] [place] [address] Dr. Tammy Byrne Bacteria identified Cx Nom (U) NOT INDICATED Normal [facility] Comment on above: Performed By: #### U MICRO, ERUR #### [facility] [address] [place] [address] Dr. Tammy Byrne CAST NONE SEEN Normal NONE SEEN [facility] Comment on above: Performed By: #### U MICRO, ERUR #### [facility] [address] [address] [address] Tammy Byrne Crystals LM Nom (Urine sed) NONE SEEN Normal NONE SEEN [facility] Comment on above: Performed By: #### U MICRO, ERUR #### [facility] [address] [place] [address] Dr. Tammy Byrne Epithelial cells LM Ql (Urine sed) FEW Abnormal NONE SEEN /RARE [facility] Comment on above: Performed By: #### U MICRO, ERUR #### [facility] [address] [place] [address] Dr. Tammy Byrne MUCOUS NONE SEEN Normal NONE SEEN [facility] Comment on above: Performed By: #### U MICRO, ERUR #### [facility] [address] [address] [address] Tammy Byrne RBC 5-10 Abnormal 0-2 [facility] Comment on above: Performed By: #### U MICRO, ERUR #### [facility] [address] [place] [address] Dr. Tammy Byrne WBC NONE SEEN Normal NONE SEEN [facility] Comment on above: Performed By: #### U MICRO, ERUR #### [facility] [address] [address] [address] Tammy Byrne US PELVIS TRANSVAGon 022 US PELVIS TRANSVAG EXAM: Pelvic sonography TECHNIQUE: Endovaginal B-mode ultrasound with color Doppler. COMPARISONS: CT abdomen pelvis 08/02/2021 HISTORY: Torsion of ovary FINDINGS: Uterus demonstrates normal echotexture and gross appearance. The uterus measures 10.6 x 4.1 x 5.7 cm. Endometrial stripe measures 7 mm. No significant free fluid in the cul-de-sac. Right ovary measures 4.2 x 3.3 x 5.4 cm. 3.8 x 3.3 x 3.1 cm cyst in the right ovary. Normal parenchymal echotexture, color Doppler flow, arterial and venous waveforms. Left ovary was not visualized sonographically. No solid or cystic adnexal mass. IMPRESSION: 3.8 cm right ovarian cyst within normal limits for patient's age. No sonographic evidence of ovarian torsion. Electronically authenticated by: AVELINA ALVAREZ Date: 2021-08-02 20:28 Normal [facility] Covid-19 PCR (CVDTB)on SARS-CoV-2 (COVID-19) RNA IVAN+probe Ql (Unsp spec) Not detected Normal NOT DETECTED [facility] Comment on above: Result Comment: This test is not yet approved or cleared by the [place] FDA. When there are no FDA-approved or cleared tests available, and other criteria are met, FDA can make tests available under an emergency access mechanism called an Emergency Use Authorization (EUA). The EUA for this test is supported by the Corporate Trainer of Health and Human Service's (HHS's) declaration that circumstances exist to justify the emergency use of in vitro diagnostics for the detection and/or diagnosis of the virus that causes COVID-19. This EUA will remain in effect (meaning this test can be used) for the duration of the COVID-19 declaration justifying emergency of IVDs, unless it is terminated or revoked by FDA (after which the test may no longer be used). When diagnostic testing is negative, the possibility of a false negative should be considered in the context of a patient's recent exposures and the presence of clinical signs and symptoms consistent with SARS-CoV-2. Performed By: #### C TAMI, CVDTB ####[facility] [id number] [place], [place] [address]WyixzzPeri Hewitt SYMPTOMATIC COVID-19 ANTIGEN on 12-12-2020 EUA Statement SEE BELOW Normal [facility] Comment on above: Result Comment: This test has not been FDA cleared or approved, but has been authorized by the FDA under an Emergency Use Authorization (EUA) for use by authorized laboratories certified under CLIA that meet the requirements to perform moderate or high complexity testing. This test has been authorized only for the detection of proteins from SARS-CoV-2, not for any other viruses or pathogens. The emergency use of this test is authorized for the duration of the declaration that circumstances exist justifying the authorization of emergency use of in vitro diagnostic tests for detection and/or diagnosis of Covid-19 under section 564(b)(1) of the Act, 21 U.S.C. 360bbb-3(b)(1), unless the declaration is terminated or authorization is revoked sooner. Performed By: #### C TAMI, CVDTB #### [facility] [address] [place], [place] [address] Peri Hewitt SARS-CoV-2 (COVID-19) RNA IVAN+probe Ql (Unsp spec) Negative Normal NEGATIVE [facility] Comment on above: Result Comment: CONF IRMATION BY PCR PENDING PER CDC GUIDELINES/ SYMPTOMATIC PATIENT. Will reflex to PCR per CDC guidelines. Performed By: #### C TAMI, CVDTB #### [facility] [address] [place], [place] [address] Peri Hewitt Encounters Encounter Date Encounter Type Care Provider Facility Start: 08-08-2021 End: 08-08-[address] AUTUMN BECKWITH Facility:[facility] Start: 08-02-2021 End: 08-02-[address] AUTUMN BECKWITH Facility:[facility] Start: 02-16-2021 End: 02-16-[address] AUTUMN BECKWITH Facility:[facility] Start: 12-12-2020 End: 12-13-[address] AUTUMN BECKWITH Facility:[facility] Payers Date Payer Category Payer Unknown [id number] 2.16.84 [id number] 1987 Unknown [id number] 2.16.84 [id number] 1987 Unknown [id number] 2.16.84 [id number] 1987 Unknown [id number] 2.16.84 [id number] 1959 Unknown [id number] 1959 Unknown [id number] Summary Purpose Family History No Family History Records Found Advance Directives No Advanced Directives Records Found Additional Source Comments INFORMATION SOURCE (unrecogn ized section and content) DATE CREATED AUTHOR 09/15/2021 [facility] FOR RECORDS PERTAINING TO PATIENTS WHO ARE OR HAVE BEEN ENROLLED IN A CHEMICAL DEPENDENCY/SUBSTANCEABUSE PROGRAM, SOME INFORMATION MAY BE OMITTED. This clinical summary was aggregated from multiple sources. Caution should be exercised in using it in the provision of clinical care. This summary normalizes information from multiple sources, and as a consequence, information in this document may materially change the coding, format and clinical context of patient data. In addition, data may be omitted in some cases. CLINICAL DECISIONS SHOULD BE BASED ON THE PRIMARY CLINICAL RECORDS. [facility]. provides no warranty or guarantee of the accuracy or completeness of information in this document.
[2024-11-18 21:59] VITALS: BP 134/83; PULSE 104; TEMP 36.8; O2SAT 99; BMI 28.3
--- NOTE | 2024-11-18 22:16 | ED_ITS ---
HPI HPI - General Adult General Chief complaint: Urogenital-Female Stated complaint: PAIN IN RIGHT SIDE Time Seen by Provider: 11/18/24 21:58 Source: patient Mode of arrival: walk-in Limitations: no limitations History of Present Illness HPI narrative: This 39-year-old female who states she has had multiple urinary tract infections in the past presents for evaluation of right flank pain and urinary frequency or urgency and dysuria. She states the symptoms started last night. She states for approximately 3 hours at night she had shaking chills. She had some nausea as well. Today she is having sharp stabbing right flank pain that goes into the right lower quadrant of her abdomen. She is mildly nauseated but has not vomited. She is not having any diarrhea. She has never seen a urologist despite having multiple urinary tract infections in the past. She states she has pain that is worse in the flank with breathing and moving. She denies any donavan chest pain or shortness of breath. Related Data Allergies Allergy/AdvReac Type Severity Reaction Status Date / Time No Known Drug Allergies Allergy Verified 11/18/24 22:03 Opioid HPI Opioid Management Most Recent Opioid Data: Last Pain Scale 6 Today, 03:55 Last ED Pain Assessment Today, 01:13 Last MAR Pain Assessment 11/18/24, 22:48 Review of Systems ROS Status of ROS 10 or more systems reviewed and unremark able except as noted in history and below PFSH PFSH Social History Little interest or pleasure in doing things: not at all Feeling down, depressed, or hopeless: not at all Exam Narrative Exam Narrative: Vital signs and Nursing Notes reviewed: Patient is afebrile she is mildly tachycardic with a pulse of 104, she has a normal blood pressure at 134/83 and she is not hypoxic with pulse ox of 99% on room air General: Awake, alert, oriented, no acute distress, lying comfortably on the stretcher HEENT: Normocephalic atraumatic, mucous membranes are moist and pink, eyes are clear, normal conjunctiva, vision is grossly intact Neck: Supple, no meningeal signs, no anterior or posterior cervical lymphadenopathy Chest: Lungs are clear to auscultation with good air entry, there is no wheezing rhonchi or rales appreciated no accessory muscle use, patient is speaking in complete sentences-no chest wall tenderness to palpation CVS: Regular rate and rhythm S1-S2, no murmurs rubs or gallops, pulses are brisk and equal bilaterally ABD: Soft, nondistended, mild tenderness along the right lateral anterior flank, no donavan CVA tenderness, negative Rovsing sign, no tenderness over McBurney's point, no right upper quadrant epigastric or left upper quadrant tenderness Extremities: Moving all extremities, no lower extremity tenderness or swelling noted, negative Homans' sign, pulses are brisk and equal bilaterally Skin: Normal in appearance without rash,pallor, petechiae or purpura Neuro: No focal deficits Constitutional Vital Signs, click to edit/add: Last Vital Signs Temp 98.6 F 11/19/24 01:12 Pulse 101 H 11/19/24 03:38 Resp 16 11/19/24 03:38 BP 129/81 11/19/24 03:38 Pulse Ox 99 11/19/24 03:38 O2 Del Method Room Air 11/19/24 03:38 Course Vital Signs Vital signs: Vital Signs Temperature 98.3 F 11/18/24 21:59 Pulse Rate 104 H 11/18/24 21:59 Respiratory Rate 18 11/18/24 21:59 Blood Pressure 134/83 11/18/24 21:59 Pulse Oximetry 99 11/18/24 21:59 Oxygen Delivery Method Room Air 11/18/24 21:59 Temperature 98.6 F 11/19/24 01:12 Pulse Rate 101 H 11/19/24 03:38 Respiratory Rate 16 11/19/24 03:38 Blood Pressure 129/81 11/19/24 03:38 Pulse Oximetry 99 11/19/24 03:38 Oxygen Delivery Method Room Air 11/19/24 03:38 Medical Decision Making MDM Narrative Medical decision making narrative: This 39-year-old female who has had multiple urinary tract infections in the past presents for evaluation of right flank pain with mild nausea and urinary frequency and urgency as if she is getting a UTI. She states the pain is worse with deep breathing and movement. She has not had any hematuria. She has not had any fever but states that she had shaking chills for several hours last night when her symptoms started. She does not have a history of kidney stones. She was mildly tender in the lateral lower flank on the right. Her vital signs are stable. She was afebrile. An IV was placed and she was medicated with IV fluids, Toradol and Zofran with clinical improvement. Her urine is positive for large blood and 10-20 white blood cells per high-power field. She has a normal white count and stable hemoglobin at 11.8. Electrolytes are normal. Blood cultures are pending. Lactic acid is normal at 1.3. D-dimer was mildly elevated at 0.63. She was given IV Rocephin for the white blood cells in her urine. CT scan of the abdomen pelvis without contrast shows a obstructing 6 mm calculus in the right UVJ with mild hydronephrosis and additional 2 mm nonobstructing calculus in the upper pole of the right kidney. Left kidney and ureter were normal. Urinary bladder was normal. She had normal appendix. Normal peritoneum. The results of the CT scan were discussed with her. In light of the kidney stone findings she was also medicated with 400 mg of IV Cipro. Reevaluation she states her pain is coming back somewhat and she was given 4 mg of IV morphine and 4 mg of IV Zofran. CT angio of the chest is negative for acute findings. Patient will be discharged home after the IV Cipro. I had a lengthy discussion with her about when to return to the emergency department including fevers, chills, intractable nausea vomiting, intractable pain, inability to take her me dications or any concerns. At this time and during her stay there has not been any sign of sepsis. She is not toxic. She is well-appearing and comfortable being discharged home. She will be discharged home with prescriptions for [place], Zofran, Keflex, Cipro and Flomax and she will be referred to outpatient urology if she does not pass the stone. Lab Data Labs: Lab Results 11/18/24 11/18/24 Range/Units 22:20 22:45 WBC 7.1 (4.0-11.0) 10^3/uL RBC 3.59 L (4.20-5.40) 10^6/uL Hgb 11.8 L (12.0-16.0) g/dL Hct 35.7 L (36.0-48.0) % MCV 99.4 H (81.0-99.0) fL MCH 32.9 (26.7-34.0) pg MCHC 33.1 (29.9-35.2) g/dL RDW 12.3 (11.0-15.0) % Plt Count 140 L (150-450) 10^3/uL MPV 10.9 (9.5-13.5) fL Neut % (Auto) 68.9 (43.0-75.0) % Lymph % (Auto) 14.3 L (20.5-60.0) % [place] % (Auto) 15.3 H (1.7-12.0) % Eos % (Auto) 0.8 L (0.9-7.0) % Baso % (Auto) 0.6 (0.2-2.0) % Neut # (Auto) 4.9 (1.4-6.5) 10^3/uL Lymph # (Auto) 1.0 L (1.2-3.8) 10^3/uL [place] # (Auto) 1.1 H (0.3-0.8) 10^3/uL Eos # (Auto) 0.1 (0.0-0.7) 10^3/uL Baso # (Auto) 0.0 (0.0-0.1) 10^3/uL Abs Immat Gran (auto) 0.01 (0.00-0.03) 10^3/uL Imm/Tot Granulo (auto) 0.1 (0.0-0.5) % D-Dimer 0.63 H* (<=0.59) mg/L FEU Sodium 141 (136-145) mmol/L Potassium 3.4 L (3.5-5.1) mmol/L Chloride 103 (98-107) mmol/L Carbon Dioxide 30.9 (21.0-32.0) mmol/L Anion Gap 10.5 BUN 12.0 (7.0-18.0) mg/dL Creatinine 0.69 (0.55-1.02) mg/dL Est GFR ( Amer) >60 (>=60 mL/min/1.73m^2) Est GFR (Non-Af Amer) >60 (>=60 mL/min/1.73m^2) BUN/Creatinine Ratio 17.4 Glucose 114 H (74-106) mg/dL Lactate 1.3 (0.4-2.0) mmol/L Calcium 9.3 (8.5-10.1) mg/dL Total Bilirubin 0.3 (0.2-1.0) mg/dL AST 15 (15-37) U/L ALT 25 (14-59) U/L Alkaline Phosphatase 62 (46-116) U/L Total Protein 7.0 (6.4-8.2) g/dL Albumin 3.2 L (3.4-5.0) g/dL Globulin 3.8 g/dL Albumin/Globulin Ratio 0.8 Urine Color Lt. yellow (YELLOW) Urine Clarity Clear (CLEAR) Urine pH 5.5 (5.0-9.0) Ur Specific [place] 1.020 (1.005-1.025) Urine Protein 30 A (NEG/TRACE) mg/dL Urine Glucose (UA) Negative (NEGATIVE) mg/dL Urine Ketones Negative (NEGATIVE) mg/dL Urine Occult Blood Large A (NEGATIVE) Urine Nitrite Negative (NEGATIVE) Urine Bilirubin Negative (NEGATIVE) Urine Urobilinogen 0.2 (0.2-1.0) EU/dL Ur Leukocyte Esterase Small A (NEGATIVE) Urine RBC 0-2 (0-2) #/HPF Urine WBC 10-20 A (NONE SEEN) #/HPF Ur Squamous Epith Cells Rare (NONE/RARE) #/LPF Urine Crystals None seen (None Seen) #/HPF Urine Bacteria Moderate A (NONE SEEN) #/HPF Urine Casts None seen (NONE SEEN) #/LPF Urine Mucus Small A (NONE SEEN) Ur Culture Indicated? [place] [place] HCG, Qual Negative (NEGATIVE) Discharge Plan Discharge Chief Complaint: Urogenital-Female Clinical Impression: Kidney stone on right side, Hydronephrosis due to obstruction of ureter Patient Disposition: Home, Self-Care Time of Disposition Decision: 04:26 Condition: Good Print Language: Portuguese Instructions: Kidney Stones (ED), Hydronephrosis (ED) Referrals: Edwin Schultz MD [Primary Care Provider, Family Practice] - 1 week Tiarra Parnell MD [Physician, Urology] - As soon as possible
[2024-11-18 22:25] LABS: Glucose Urine UA NEGATIVE (NEGATIVE)
[2024-11-18 22:26] LABS: HCG Qualitative Urine* NEGATIVE (NEGATIVE)
[2024-11-18 22:32] LABS: Cast Seen? NONE SEEN #/LPF (NONE SEEN); Crystals Seen? None Seen #/HPF (None Seen); Urine Culture Indicated YES-FRMC
[2024-11-18] MEDS: KETOROLAC TROMETHAMINE 30 MG/ML VIAL IVP (22:48)
[2024-11-18] MEDS: 0.9 % SODIUM CHLORIDE 1,641 ML 547 ML IV (22:55)
[2024-11-18 23:13] LABS: Hematocrit 35.7 % (36.0-48.0); Hemoglobin 11.8 g/dL (12.0-16.0); Immature Granulocytes Abs Auto 0.01 10^3/uL (0.00-0.03); Immature Granulocytes Pct Auto 0.1 % (0.0-0.5); Lymphocytes Absolute Auto 1.0 10^3/uL (1.2-3.8); Mean Corpuscular HGB Conc 33.1 g/dL (29.9-35.2); Mean Corpuscular Hemoglobin 32.9 pg (26.7-34.0); Mean Corpuscular Volume 99.4 fL (81.0-99.0); Platelet Count 140 10^3/uL (150-450); Red Blood Count 3.59 10^6/uL (4.20-5.40); White Blood Count 7.1 10^3/uL (4.0-11.0)
[2024-11-18 23:28] LABS: Alanine Aminotransferase 25 U/L (14-59); Albumin Globulin Ratio 0.8; Albumin Level 3.2 g/dL (3.4-5.0); Alkaline Phosphatase 62 U/L (46-116); Anion Gap 10.5; Aspartate Amino Transferase 15 U/L (15-37); Blood Urea Nitrogen 12.0 mg/dL (7.0-18.0); Calcium 9.3 mg/dL (8.5-10.1); Carbon Dioxide 30.9 mmol/L (21.0-32.0); Chloride 103 mmol/L (98-107); Estimated GFR (African America >60 (>=60 mL/min/1.73m^2); Estimated GFR (Non-African Ame >60 (>=60 mL/min/1.73m^2); Globulin 3.8 g/dL; Glucose 114 mg/dL (74-106); Potassium 3.4 mmol/L (3.5-5.1); Sodium 141 mmol/L (136-145); Total Protein 7.0 g/dL (6.4-8.2)
[2024-11-18 23:31] LABS: Lactate/Lactic Acid 1.3 mmol/L (0.4-2.0)
[2024-11-19 01:12] VITALS: BP 121/75; PULSE 83; TEMP 37; O2SAT 97
[2024-11-19 03:38] VITALS: BP 129/81; PULSE 101; O2SAT 99
[2024-11-19] MEDS: CIPROFLOXACIN IN 5 % DEXTROSE 400 MG/200 ML PREMIX 200 MG IV (03:55)
[2024-11-19] MEDS: MORPHINE SULFATE 4 MG/ML VIAL IV (03:55)
== END 2024-11-19 05:11 | disposition home or self-care (01) ==
PROVIDERS: Emergency Provider Emergency Medicine; PCP Family Medicine
DX: N13.2 Hydronephrosis with renal and ureteral calculous obstruction (principal); Z87.440 Personal history of urinary (tract) infections; R79.89 Other specified abnormal findings of blood chemistry
CPT/HCPCS: 36415; 71275; 74176; 80053; 81001; 83605; 84703; 85025; 85378; 87040; 87086; 87088; 87186; 96365; 96367; 96375; 96376; 99285; J0696; J0744; J1885; J2270; J2405; Q9967

== ENCOUNTER 2024-11-19 14:11 | Emergency (ER) | payer OTHER, SELFPAY ==
[2024-11-19 14:27] VITALS: BP 121/77; PULSE 110; TEMP 37.2; O2SAT 95; BMI 28.3
--- NOTE | 2024-11-19 14:41 | ED.GENADUL1 ---
HPI HPI - General Adult General Chief complaint: Abdominal Pain Stated complaint: R SIDE FLANK & R SIDE ABDOMINAL PAIN, NAUSEA Time Seen by Provider: 11/19/24 14:31 Source: patient Mode of arrival: walk-in Limitations: no limitations History of Present Illness HPI narrative: Is a 39-year-old female who presents to the emergency department today for evaluation of concerns for worsening pain following an ER visit overnight where she was diagnosed with right-sided kidney stone. She mentions she has not yet picked up the analgesic medication she was prescribed however did attempt to call the urologist, she was instructed to follow-up with from earlier this morning and was subsequently advised to come back to the ER. She reports she continues to have pain to the right flank region that radiates to the right side of the abdomen. With symptoms of nausea. No fevers/chills, chest pain, shortness of breath. Denies any urinary symptoms. Related Data Previous Rx's ?Medication ?Instructions ?Recorded tamsulosin 0.4 mg capsule 0.4 mg PO DAILY #14 caps 11/19/24 Allergies Allergy/AdvReac Type Severity Reaction Status Date / Time No Known Drug Allergies Allergy Verified 11/19/24 14:27 Opioid HPI Opioid Management Most Recent Opioid Data: Last Pain Scale 9 Today, 15:31 Last ED Pain Assessment Today, 01:13 Last MAR Pain Assessment Today, 15:31 Review of Systems ROS Status of ROS 10 or more systems reviewed and unremarkable except as noted in history and below PFSH PFS Social History Little interest or pleasure in doing things: not at all Feeling down, depressed, or hopeless: not at all Exam Narrative Exam Narrative: Constituational: Awake/ alert, no apparent distress, well hydrated HENMT: normocephalic, external ears normal, moist oral mucous membranes and oropharynx normal Eyes: EOMI and conjunctivae normal Neck: ROM intact Chest: inspection of chest normal Respiratory: Normal respiratory effort, clear to auscultation bilaterally Cardio: regular rate and regular rhythm GI: +mild RMQ discomfort, abdomen is otherwise soft to palpation and non-tender Back: R flank discomfort, otherwise normal inspection of back MSK: ROM intact, +NVI Skin: no rashes or petechiae Neuro: no focal deficits Psych: mental status grossly normal Constitutional Vital Signs, click to edit/add: Last Vital Signs Temp 98.9 F 11/19/24 14:27 Pulse 110 H 11/19/24 14:27 Resp 20 11/19/24 14:27 BP 121/77 11/19/24 14:27 Pulse Ox 95 11/19/24 14:27 O2 Del Method Room Air 11/19/24 14:27 Course Vital Signs Vital signs: Vital Signs Temperature 98.9 F 11/19/24 14:27 Pulse Rate 110 H 11/19/24 14:27 Respiratory Rate 20 11/19/24 14:27 Blood Pressure 121/77 11/19/24 14:27 Pulse Oximetry 95 11/19/24 14:27 Oxygen Delivery Method Room Air 11/19/24 14:27 Temperature 98.9 F 11/19/24 14:27 Pulse Rate 110 H 11/19/24 14:27 Respiratory Rate 11/19/24 14:27 Blood Pressure 121/77 11/19/24 14:27 Pulse Oximetry 95 11/19/24 14:27 Oxygen Delivery Method Room Air 11/19/24 14:27 Medical Decision Making MDM Narrative Medical decision making narrative: Patient is a nontoxic-appearing 39-year-old female who re presented to the emergency department today for evaluation concerns for ongoing right flank pain after being diagnosed with a kidney stone earlier this morning. Historically she was prescribed Ruth, Zofran, Keflex which she states she has not yet picked up. She has not taken any [id number] analgesics for her pain in addition patient today. Per chart review patient had stable labs and UA, was concerning for UTI which she did receive IVPB ceftriaxone for while in the ER. CT imaging noted to have 6 mm obstructing calculus at the right UVJ with mild hydronephrosis and a 2 mm nonobstructing calculus in the right upper pole of the kidney. Initial examination vital signs overall stable with exception to reported pain mostly to the right flank region. She received supportive measures of IV fluids, morphine, Zofran and on reevaluation she reports an overall permanent condition. Labs today stable as below. Discussed the above with the patient including recommendations for supportive care. Will add tamsulosin for discharge. Advised on follow-up with urology for reevaluation. She endorses she has an appoint with urology on 11/22. Discussed signs and symptoms of any worsening condition and when to consider reevaluation by the emergency department. Patient verbalized an understanding of this and is agreeable to plan to be discharged home. Medical Records Medical records reviewed: Yes I reviewed the patient's medical records Lab Data Lab results reviewed: Yes I reviewed the patient's lab results Labs: Lab Results 11/19/24 Range/Units 15:15 WBC 8.9 (4.0-11.0) 10^3/uL RBC 3.36 L (4.20-5.40) 10^6/uL Hgb 11.0 L (12.0-16.0) g/dL Hct 32.8 L (36.0-48.0) % MCV 97.6 (81.0-99.0) fL MCH 32.7 (26.7-34.0) pg MCHC 33.5 (29.9-35.2) g/dL RDW 12.2 (11.0-15.0) % Plt Count 135 L (150-450) 10^3/uL MPV 10.5 (9.5-13.5) fL Neut % (Auto) 75.9 H (43.0-75.0) % Lymph % (Auto) 7.9 L (20.5-60.0) % [place] % (Auto) 15.1 H (1.7-12.0) % Eos % (Auto) 0.1 L (0.9-7.0) % Baso % (Auto) 0.4 (0.2-2.0) % Neut # (Auto) 6.8 H (1.4-6.5) 10^3/uL Lymph # (Auto) 0.7 L (1.2-3.8) 10^3/uL [place] # (Auto) 1.3 H (0.3-0.8) 10^3/uL Eos # (Auto) 0.0 (0.0-0.7) 10^3/uL Baso # (Auto) 0.0 (0.0-0.1) 10^3/uL Abs Immat Gran (auto) 0.05 H (0.00-0.03) 10^3/uL Imm/Tot Granulo (auto) 0.6 H (0.0-0.5) % Sodium 139 (136-145) mmol/L Potassium 3.7 (3.5-5.1) mmol/L Chloride 103 (98-107) mmol/L Carbon Dioxide 24.9 (21.0-32.0) mmol/L Anion Gap 14.8 BUN 7.0 (7.0-18.0) mg/dL Creatinine 0.86 (0.55-1.02) mg/dL Est GFR ( Amer) >60 (>=60 mL/min/1.73m^2) Est GFR (Non-Af Amer) >60 (>=60 mL/min/1.73m^2) BUN/Creatinine Ratio 8.1 Glucose 112 H (74-106) mg/dL Calcium 8.6 (8.5-10.1) mg/dL Total Bilirubin 0.4 (0.2-1.0) mg/dL AST 15 (15-37) U/L ALT 23 (14-59) U/L Alkaline Phosphatase 48 (46-116) U/L Total Protein 6.3 L (6.4-8.2) g/dL Albumin 2.9 L (3.4-5.0) g/dL Globulin 3.4 g/dL Albumin/Globulin Ratio 0.9 Discharge Plan Discharge Chief Complaint: Abdominal Pain Clinical Impression: Kidney stone on right side Patient Disposition: Home, Self-Care Prescriptions / Home Meds: New tamsulosin 0.4 mg capsule 0.4 mg PO DAILY Qty: 14 0RF Print Language: Canadian Instructions: Kidney Stones (ED) Referrals: Edwin Schultz MD [Primary Care Provider, Family Practice] - 1 week Ronaldo Navarro MD [Physician, Urology] - 1 week
[2024-11-19 15:26] LABS: Hematocrit 32.8 % (36.0-48.0); Hemoglobin 11.0 g/dL (12.0-16.0); Immature Granulocytes Abs Auto 0.05 10^3/uL (0.00-0.03); Immature Granulocytes Pct Auto 0.6 % (0.0-0.5); Lymphocytes Absolute Auto 0.7 10^3/uL (1.2-3.8); Mean Corpuscular HGB Conc 33.5 g/dL (29.9-35.2); Mean Corpuscular Hemoglobin 32.7 pg (26.7-34.0); Mean Corpuscular Volume 97.6 fL (81.0-99.0); Platelet Count 135 10^3/uL (150-450); Red Blood Count 3.36 10^6/uL (4.20-5.40); White Blood Count 8.9 10^3/uL (4.0-11.0)
[2024-11-19] MEDS: MORPHINE SULFATE 2 MG/ML SYRINGE IV (15:31)
[2024-11-19] MEDS: TAMSULOSIN HCL 0.4 MG CAPSULE PO (15:33)
[2024-11-19] MEDS: 0.9 % SODIUM CHLORIDE 1,000 ML 1000 ML IV (15:39)
[2024-11-19 15:40] LABS: Alanine Aminotransferase 23 U/L (14-59); Albumin Globulin Ratio 0.9; Albumin Level 2.9 g/dL (3.4-5.0); Alkaline Phosphatase 48 U/L (46-116); Anion Gap 14.8; Aspartate Amino Transferase 15 U/L (15-37); Blood Urea Nitrogen 7.0 mg/dL (7.0-18.0); Calcium 8.6 mg/dL (8.5-10.1); Carbon Dioxide 24.9 mmol/L (21.0-32.0); Chloride 103 mmol/L (98-107); Estimated GFR (African America >60 (>=60 mL/min/1.73m^2); Estimated GFR (Non-African Ame >60 (>=60 mL/min/1.73m^2); Globulin 3.4 g/dL; Glucose 112 mg/dL (74-106); Potassium 3.7 mmol/L (3.5-5.1); Sodium 139 mmol/L (136-145); Total Protein 6.3 g/dL (6.4-8.2)
[2024-11-19 16:22] VITALS: BP 114/74; O2SAT 98
== END 2024-11-19 16:24 | disposition home or self-care (01) ==
PROVIDERS: Nurse Practitioner; Emergency Provider Emergency Medicine; PCP Family Medicine
DX: N20.0 Calculus of kidney (principal)
CPT/HCPCS: 36415; 80053; 85025; 96374; 96375; 99284; J2270; J2405